=== PATIENT | female | born 1960 | race Caucasian/White ===

== ENCOUNTER 2016-08-27 19:42 | Emergency (ER) | payer MEDICARE ==
[2016-08-27] MEDS ORDERED: Sodium Chloride 0.9% 1000 ML 1,000 ML ONE (20:13)
[2016-08-27] MEDS: Sodium Chloride 0.9% 1000 ML 1,000 ML IV SCH ×2 (20:14→21:01)
--- NOTE | 2016-08-27 20:15 | ERPHSYRPT ---
- History of Present Illness Time Seen by Provider: 08/27/16 20:11 Source: patient, family Exam Limitations: no limitations Patient Subjective Stated Complaint: Daughter sts they were out couponing, came home, sts heart monitor was going off, sts she pushed the button and then had a blank stare with facial drooping both sides. Then told her daughter "I think I need to go to the emergency room". Daughter sts that pt then would only grunt to answer. Pt with pain left shoulder and back. Rates pain 4/10. Triage Nursing Assessment: Pt alert, oriented, answers all questions appropriately however appears lethargic. Skin p/w/d, resps non-labored. Pt with life vest on. SPO2 98% room air. Physician History: aughter sts they were out couponing, came home, sts heart monitor was going off , sts she pushed the button and then had a blank stare with facial drooping both sides. Then told her daughter "I think I need to go to the emergency room ". Daughter sts that pt then would only grunt to answer. Pt with pain left shoulder and back. Patient has Hx of viral cardiomyopathy. Her recent EF is 40 % improved from 20 % 6 months ago Timing/Duration: today Activities at Onset: activity Nitro Today/Relief: no nitro taken today Aspirin Treatment Today: 81 mg x 1 Associated Symptoms: shortness of breath, diaphoresis, syncope, weakness Prior Chest Pain/Cardiac Workup: cardiac cath, echocardiography, recently seen/ treated (by Dr Smith (cardiology)) Allergies/Adverse Reactions: Penicillins Allergy (Unknown, Verified 08/27/16 20:03) not taken as a child, does not remember Home Medications: Gabapentin 300 mg [Neurontin 300 mg] 300 mg PO HS 11/09/11 [History] Metoprolol Succinate 100 mg [Toprol Xl 100 MG] 100 mg PO HS 09/20/13 [ History] Venlafaxine HCl [Effexor Xr] 150 mg PO DAILY 09/20/13 [History] Aspirin [Aspirin EC] 81 mg PO DAILY 08/27/16 [History] Carvedilol 3.125 mg [Coreg 3.125 MG] 3.125 mg PO DAILY 08/27/16 [History] Lisinopril 10 mg PO DAILY 08/27/16 [History] Hx Tetanus, Diphtheria Vaccination/Date Given: Yes (6 YRS. AGO) Hx Influenza Vaccination/Date Given: No Hx Pneumococcal Vaccination/Date Given: No - Review of Systems Constitutional: Weakness, No Fever, No Chills Eyes: No Symptoms Ears, Nose, & Throat: No Symptoms Respiratory: No Cough, No Dyspnea Cardiac: No Chest Pain, No Edema, No Syncope Abdominal/Gastrointestinal: No Abdominal Pain, No Nausea, No Vomiting, No Diarrhea Genitourinary Symptoms: No Dysuria Musculoskeletal: No Back Pain, No Neck Pain Skin: No Rash Neurological: Dizziness, No Focal Weakness, No Sensory Changes Psychological: No Symptoms Endocrine: No Symptoms All Other Systems: Reviewed and Negative - Past Medical History Pertinent Past Medical History: Yes Neurological History: Migraines ENT History: No Pertinent History Cardiac History: No Pertinent History Respiratory History: No Pertinent History Endocrine Medical History: No Pertinent History Musculoskeletal History: No Pertinent History, Other GI Medical History: GERD History: No Pertinent History Psycho-Social History: Depression Female Reproductive Disorders: Endometriosis Other Medical History: h1n1 with pneumonia and infection injured her heart. Last ECHO was 25% function, had heart cath last 08/18/16 - Past Surgical History Past Surgical History: Yes Neuro Surgical History: No Pertinent History Cardiac: No Pertinent History, Cardiac Catheterization, Other Respiratory: No Pertinent History Gastrointestinal: Appendectomy, Cholecystectomy Genitourinary: No Pertinent History Musculoskeletal: No Pertinent History Female Surgical History: Hysterectomy Other Surgical History: "vericose veins burned out" both legs, has life vest on - Social History Smoking Status: Never smoker Exposure to second hand smoke: No Drug Use: none Patient Lives Alone: No - Nursing Vital Signs Temperature: 97.9 F Temperature Source: Oral Pulse Rate: 82 Respiratory Rate: 16 - Physical Exam General Appearance: no apparent distress, alert Eye Exam: PERRL/EOMI, eyes nml inspection Ears, Nose, Throat Exam: normal ENT inspection, moist mucous membranes Neck Exam: normal inspection, non-tender, supple Respiratory Exam: normal breath sounds, lungs clear, No respiratory distress Cardiovascular Exam: regular rate/rhythm, normal heart sounds, No edema Gastrointestinal/Abdomen Exam: soft, No tenderness, No mass Back Exam: normal inspection, No CVA tenderness, No vertebral tenderness Extremity Exam: normal inspection, normal range of motion Neurologic Exam: alert, oriented x 3, cooperative, normal mood/affect, nml cerebellar function, sensation nml, No motor deficits Skin Exam: normal color, warm, dry Lymphatic Exam: No adenopathy SpO2: 98 Oxygen Delivery: Room Air - Course Nursing assessment & vital signs reviewed: Yes EKG Interpreted by Me: Sinus Rhythm, Non-specific ST Changes - Radiology Exams Chest X-ray Interpretation: Reviewed by me - CT Exams Chest CT Interpretation: Tele-radiologist Report (no PE) Ordered Tests: Active Orders 24 hr Category Date Time Status CHEST 2 VIEWS (PA AND LAT) Stat Exams 08/27/16 20:09 Completed CHEST WITH CONTRAST [CT] Stat Exams 08/27/16 20:44 Taken CBC W DIFF Stat Lab 08/27/16 20:00 Completed CMP Stat Lab 08/27/16 20:00 Completed D-DIMER QUANTITATION Stat Lab 08/27/16 20:00 Completed TROPONIN Stat Lab 08/27/16 20:00 Completed UA Stat Lab 08/27/16 20:09 Ordered Medication Summary Generic Name Dose Route Start Last Admin Trade Name Freq PRN Reason Stop Dose Admin Sodium Chloride 1,000 mls @ 100 mls/hr 08/27/16 20:15 08/27/16 21:01 Sodium Chloride 0.9% 1000 Ml IV 09/26/16 20:14 100 mls/hr .Q10H SANGITA Administration Discontinued Medications Generic Name Dose Route Start Last Admin Trade Name Freq PRN Reason Stop Dose Admin Sodium Chloride Confirm 08/27/16 20:13 Sodium Chloride 0.9% 1000 Ml Administered 08/27/16 20:14 Dose 1,000 mls @ ud .ROUTE .STK-MED ONE Sodium Chloride Confirm 08/27/16 20:56 Sodium Chloride 0.9% 1000 Ml Administered 08/27/16 20:57 Dose 1,000 mls @ ud .ROUTE .STK-MED ONE Potassium Bicarbonate 50 meq 08/27/16 20:43 08/27/16 21:01 K-Lyte 25 Meq PO 08/27/16 20:44 50 meq STAT ONE Administration Potassium Bicarbonate Confirm 08/27/16 20:56 K-Lyte 25 Meq Administered 08/27/16 20:57 Dose 50 meq .ROUTE .STK-MED ONE Lab/Rad Data: Laboratory Result Diagrams 08/27/16 20:00 08/27/16 20:00 Laboratory Results 08/27/16 08/27/16 08/27/16 Range/Units 20:00 20:00 20:00 WBC 7.5 (4.0-10.5) K/mm3 RBC 4.48 (4.1-5.4) M/mm3 Hgb 13.1 (12.0-16.0) gm/dl Hct 41.6 (35-47) % MCV 92.9 (78-100) fl MCH 29.2 (26-32) pg MCHC 31.5 L (32-36) g/dl RDW 14.9 H (11.5-14.0) % Plt Count 215 (150-450) K/mm3 MPV 10.8 H (6-9.5) fl Gran % 49.6 (36.0-66.0) % Lymphocytes % 27.7 (24.0-44.0) % Monocytes % 8.2 (0.0-12.0) % Eosinophils % 14.0 H (0.00-5.0) % Basophils % 0.5 (0.0-0.4) % Basophils # 0.04 (0-0.4) D-Dimer 0.774 H* (0.00-0.49) mg/L Sodium 147 H (136-145) mEq/L Potassium 3.4 L (3.5-5.1) mEq/L Chloride 108 H (98-107) mEq/L Carbon Dioxide 28.1 (21-32) mEq/L Anion Gap 14.5 (5-15) MEQ/L BUN 10 (9-20) mg/dL Creatinine 1.09 (0.55-1.30) mg/dl Estimated GFR 56 ML/MIN Glucose 111 H (70-110) MG/DL Calcium 8.9 (8.5-10.1) mg/dL Total Bilirubin 0.7 (0.2-1.0) mg/dL AST 55 H (15-37) U/L ALT 60 (12-78) U/L Alkaline Phosphatase 170 H (46-116) U/L Troponin I < 0.017 (0.000-0.056) ng/ml Serum Total Protein 8.1 (6.4-8.2) gm/dL Albumin 3.9 (3.4-5.0) g/dL - Progress Progress: improved Air Movement: good Counseled pt/family regarding: lab results, diagnosis, need for follow-up, rad results - Departure Time of Disposition: 22:19 Departure Disposition: Home Clinical Impression: Syncope Qualifiers: Syncope type: vasovagal syncope Qualified Code(s): R55 - Syncope and collapse Condition: Stable Critical Care Time: Yes Critical Care Time(excluding separately billable procedures): 30-74 minutes Referrals: JAMES ODONNELL [Primary Care Provider] - Additional Instructions: continue all medicine as prescribed, follow up with Dr Smith on monday AM, if symptoms recur come back to ER
[2016-08-27 20:19] LABS: BASOPHIL % 0.5 % (0.0-0.4); Granulocytes % 49.6 % (36.0-66.0); Lymphocytes % 27.7 % (24.0-44.0); Mean Cell Volume 92.9 fl (78-100); Mean Corpuscular Hemoglobin 29.2 pg (26-32); Mean Platelet Volume 10.8 fl (6-9.5); Monocytes % 8.2 % (0.0-12.0); Platelet Count 215 K/mm3 (150-450); Red Blood Count 4.48 M/mm3 (4.1-5.4); Red Cell Distribution Width 14.9 % (11.5-14.0); White Blood Count 7.5 K/mm3 (4.0-10.5)
[2016-08-27 20:32] LABS: ALBUMIN 3.9 g/dL (3.4-5.0); ALKALINE PHOSPHATASE 170 U/L (46-116); ANION GAP 14.5 MEQ/L (5-15); BILIRUBIN,TOTAL 0.7 mg/dL (0.2-1.0); BLOOD UREA NITROGEN 10 mg/dL (9-20); CHLORIDE 108 mEq/L (98-107); Carbon Dioxide 28.1 mEq/L (21-32); Glucose 111 MG/DL (70-110); Potassium 3.4 mEq/L (3.5-5.1); SGOT/AST 55 U/L (15-37); SGPT/ALT 60 U/L (12-78); SODIUM 147 mEq/L (136-145); TROPONIN < 0.017 ng/ml (0.000-0.056); Total Protein 8.1 gm/dL (6.4-8.2)
[2016-08-27] MEDS ORDERED: K-LYTE 25 MEQ PO ONE (20:43)
[2016-08-27] MEDS ORDERED: K-LYTE 25 MEQ ONE (20:56)
[2016-08-27] MEDS ORDERED: Sodium Chloride 0.9% 1000 ML 0 ML ONE (20:56)
--- NOTE | 2016-08-27 21:13 | XRAY ---
Indication: Heart life vest alarm. Dizziness. Comparison: August 09, 2016. AP/lateral chest now demonstrates multiple overlying monitoring patches, wires, and electronic devices with stable subtle lingular infiltrate/atelectasis. Remaining heart and right lung unremarkable.
[2016-08-27 23:00] VITALS: BP 137/70; PULSE 70; O2SAT 99
--- NOTE | 2016-08-28 10:26 | XRAY ---
Indication: Palpitations and syncope. Elevated d-dimer. Multiple contiguous axial images obtained through the chest using 80 cc of Isovue-370 contrast and PE protocol. Comparison: CT chest without August 30, 2012. There is good opacification of the pulmonary arteries including the lobar and segmental branches. No filling defect or pulmonary embolus. Heart is not enlarged. Aorta is normal in course and caliber. No pathologic mediastinal/hilar lymphadenopathy. Examination of the lung parenchyma demonstrates bilateral atelectasis/scarring greatest near the lung bases. New indeterminate 14 mm noncalcified nodule in the right middle lobe. No infiltrate, consolidation, or effusion. Bony thorax intact with minimal degenerative changes throughout the spine. Limited upper abdomen demonstrates fatty liver and stable subcentimeter hepatic cyst adjacent to the gallbladder fossa. Impression: 1. Negative for pulmonary embolus. No acute cardiopulmonary abnormalities. 2. Right middle lobe indeterminate noncalcified nodule. Finding may be granulomatous in this demographic. Recommend follow-up per Fleischner guidelines. 3. Incidental fatty liver and tiny hepatic cyst. CTDI 23.68
== END 2016-08-27 23:00 | disposition home or self-care (01) ==
LOC: ED 19:42
DX: R55 Syncope and collapse (principal); R06.02 Shortness of breath; R61 Generalized hyperhidrosis; R53.1 Weakness; Z79.899 Other long term (current) drug therapy
CPT/HCPCS: 36000; 36415; 71020; 71260; 80053; 84484; 85025; 85379; 93005; 96360; 96361; 99284; A9270-GY

== ENCOUNTER 2017-04-18 05:55 | Day surgery (SDC) | payer MEDICARE ==
[2017-04-18] MEDS ORDERED: DIPRIVAN 200 MG/20 ML IV ONE (05:56)
[2017-04-18] MEDS ORDERED: Ketamine HCl 50 MG/ML IV ONE (05:56)
[2017-04-18] MEDS ORDERED: Lactated Ringers 1,000 ML IV SCH (06:30)
[2017-04-18 08:15] VITALS: O2SAT 96
[2017-04-18 08:42] VITALS: BP 121/71; PULSE 73
--- NOTE | 2017-05-01 14:38 | OP ---
SURGERY DATE/TIME: 05/01/201724 PREOPERATIVE DIAGNOSIS: History of colon polyps. POSTOPERATIVE DIAGNOSIS: Small polyp. PROCEDURE: Colonoscopy with biopsy. SURGEON: Dr. Lockwood. ANESTHESIA: MAC. Medications given by anesthesia department. HISTORY: The patient is a 56 year-old white female presenting now for investigation. She previously had colonoscopy in which colon polyps were removed. The patient was felt the need to have reinvestigation at this time. She was reappraised of the risks of the procedure including the risk of perforation, phlebitis, untoward reaction to medication, bleeding and missed lesions. The patient verbalized her understanding and desired to have the procedure performed. DESCRIPTION OF PROCEDURE: The patient was given the medications by the anesthesia department. She had continuous pulse oximetry, ECG monitoring, intermittent blood pressure monitoring and tidal CO2 monitoring during the examination. She was placed in the left lateral decubitus position. A digital rectal examination was performed and revealed normal sphincter tone and no masses. The flexible Olympus pediatric colonoscope was used to intubate the rectum. A view of the colon was developed sequentially to the cecum. Upon insertion and withdrawal, there was noted a small polyp. It was biopsied using cold biopsy technique. Upon insertion and withdrawal including a retroflex view in the rectum, no other mucosal lesions being encountered, the scope was removed from the patient who tolerated the procedure well and was sent back to OP recovery in good condition. The prep was noted to be fair.
== END 2017-04-18 09:00 | disposition home or self-care (01) ==
LOC: SDC 05:55
PROVIDERS: ATTEND Family Medicine
PROC: 0DBL8ZX Excision of Transverse Colon, Via Natural or Artificial Opening Endoscopic, Diagnostic (ICD-10-PCS; principal; 2017-04-18)
DX: K63.5 Polyp of colon (principal); Z86.010 Personal history of colon polyps
CPT/HCPCS: 00810; 88305; 93005; J2704

== ENCOUNTER 2020-04-14 14:20 | Observation (INO) | payer MEDICARE ==
--- NOTE | 2020-04-14 14:48 | ERPHSYRPT ---
- History of Present Illness Time Seen by Provider: 04/14/20 14:40 Historian: patient Exam Limitations: no limitations Patient Subjective Stated Complaint: . Triage Nursing Assessment: . Physician History: Patient is a 59-year-old female presents to our ED for evaluation of chest pain. Pain started approximately 6 hours ago. Pain described as an ache that is substernal. Pain rated 7 out of 10. Pain tends to radiate to the left aspect of her body. It is associated with shortness of breath. No nausea vomiting or diarrhea. Patient advised that she has a history of cardiomyopathy. Patient was infected with H1 N1. Patient states her ejection fraction decreased down to 20%. Patient states her last checkup revealed an ejection fraction of 50%. Patient also request that we take a look at her finger which he lacerated just prior to arrival. Patient denies nausea vomiting diaphoresis. No dizziness. No syncope. She voices no other complaints or concerns at this time. Timing/Duration: today Activities at Onset: other (Walking.) Quality: aching Location: substernal, other (Pain radiates to the left side of her body.) Severity of Pain-Max: moderate Severity of Pain-Current: mild Modifying Factors: Improves With: nothing Associated Symptoms: shortness of breath, No nausea, No vomiting, No palpitation s, No fever, No weakness, No syncope, No headache, No dizziness Nitro Today/Relief: no nitro taken today Aspirin Treatment Today: no aspirin today Allergies/Adverse Reactions: Penicillins Allergy (Unknown, Verified 04/14/20 14:38) not taken as a child, does not remember Home Medications: Gabapentin 300 mg [Neurontin 300 mg] 300 mg PO TID 11/09/11 [History] Venlafaxine HCl [Effexor Xr] 225 mg PO QHS 09/20/13 [History] Sacubitril/Valsartan [Entresto 24 mg-26 mg Tablet] 1 tab PO BID 02/09/17 [History] Topiramate 100 mg [Topamax 100 MG] 100 mg PO QHS 02/09/17 [History] Carvedilol [Coreg] 3.125 mg PO BID 11/30/18 [History] Hx Tetanus, Diphtheria Vaccination/Date Given: Yes Hx Influenza Vaccination/Date Given: Yes Hx Pneumococcal Vaccination/Date Given: Yes Immunizations Up to Date: Yes Travel Risk - International Travel Have you traveled outside of the country in past 3 weeks: No - Coronavirus Screening Are you exhibiting any of the following symptoms?: No - Review of Systems Constitutional: No Symptoms, No Fever, No Chills Eyes: No Symptoms Ears, Nose, & Throat: No Symptoms Respiratory: No Symptoms, No Cough, No Dyspnea Cardiac: No Symptoms, No Chest Pain, No Edema, No Syncope Abdominal/Gastrointestinal: No Symptoms, No Abdominal Pain, No Nausea, No Vomiting, No Diarrhea Genitourinary Symptoms: No Symptoms, No Dysuria Musculoskeletal: No Symptoms, No Back Pain, No Neck Pain Skin: No Symptoms, No Rash Neurological: No Symptoms, No Dizziness, No Focal Weakness, No Sensory Changes Psychological: No Symptoms Endocrine: No Symptoms Hematologic/Lymphatic: No Symptoms Immunological/Allergic: No Symptoms All Other Systems: Reviewed and Negative - Past Medical History Pertinent Past Medical History: Yes Neurological History: Migraines ENT History: No Pertinent History Cardiac History: Arrhythmia, Other Respiratory History: No Pertinent History Endocrine Medical History: No Pertinent History Musculoskeletal History: No Pertinent History, Other GI Medical History: GERD, Gallbladder Disease, Polyps History: No Pertinent History Psycho-Social History: Depression Female Reproductive Disorders: Endometriosis Other Medical History: h1n1 with pneumonia and infection injured her heart. Last ECHO shows reduced heart function 50% Multiple Sclerosis - Past Surgical History Past Surgical History: Yes Neuro Surgical History: No Pertinent History Cardiac: No Pertinent History, Cardiac Catheterization, Other Respiratory: No Pertinent History Gastrointestinal: Appendectomy, Cholecystectomy, Other Genitourinary: No Pertinent History Musculoskeletal: No Pertinent History Female Surgical History: Hysterectomy Other Surgical History: "vericose veins burned out" both legs, exploratory abdominal surgery,colonoscopy polyps removed - Social History Smoking Status: Never smoker Exposure to second hand smoke: No Drug Use: none Patient Lives Alone: No - Female History Hx Now: No - Nursing Vital Signs Nursing Vital Signs: Initial Vital Signs Pulse Rate 88 04/14/20 14:30 Respiratory Rate 16 04/14/20 14:30 Blood Pressure 138/91 04/14/20 14:30 O2 Sat by Pulse Oximetry 100 04/14/20 14:30 Pain Scale Pain Intensity 5 - Physical Exam General Appearance: no apparent distress, alert Eye Exam: PERRL/EOMI, eyes nml inspection Ears, Nose, Throat Exam: normal ENT inspection, moist mucous membranes Neck Exam: normal inspection, non-tender, supple, full range of motion Respiratory Exam: normal breath sounds, lungs clear, No respiratory distress Cardiovascular Exam: regular rate/rhythm, normal heart sounds Gastrointestinal/Abdomen Exam: soft, No tenderness, No mass Back Exam: normal inspection, No CVA tenderness, No vertebral tenderness Extremity Exam: normal inspection, normal range of motion Neurologic Exam: alert, oriented x 3, cooperative, normal mood/affect, sensation nml, No motor deficits Skin Exam: normal color, warm, dry SpO2 Interpretation: normal SpO2: 100 O2 Delivery: Room Air - Course Nursing assessment & vital signs reviewed: Yes EKG Interpreted by Me: RATE (93), Sinus Rhythm, Left [place] Deviation, NORMAL INTERVALS - Radiology Exams Chest X-ray Interpretation: Teleradiologist Report (Portable chest less inflated again without focal infiltrate no consolidation or effusion. Heart is not enlarged. Bony thorax intact. Continued nonacute chest.) Ordered Tests: Active Orders 24 hr Category Date Time Status Bedrest ROUTINE Activity 04/14/20 17:38 Active Bedrest with BRP/BSC ROUTINE Activity 04/14/20 17:38 Active [place] Sewer STAT Care 04/14/20 14:44 Completed Code Status Order ROUTINE Care 04/14/20 17:38 Active EKG-ER Only STAT Care 04/14/20 14:43 Completed IV Care Q6H Care 04/14/20 17:38 Active IV Insertion STAT Care 04/14/20 14:43 Completed Implement Chest Pain Pathway ROUTINE Care 04/14/20 17:[address] in Observation ROUTINE Care 04/14/20 17:38 Active Pulse Oximetry (ED) STAT Care 04/14/20 14:43 Completed Rajan Dubon ROUTINE Care 04/14/20 17:38 Active Telemetry q6h Care 04/14/20 17:38 Active Weight,Daily 0600 Care 04/14/20 17:38 Active Heart-Healthy Diet Diet 04/14/20 Breakfast Active CHEST 1 VIEW (PORTABLE) Stat Exams 04/14/20 14:44 Completed CBC W DIFF Stat Lab 04/14/20 14:50 Completed CMP Stat Lab 04/14/20 02:45 Completed D-DIMER QUANTITATIVE Stat Lab 04/14/20 02:45 Completed LIPID PROFILE AM.LAB Lab 04/15/20 04:00 Ordered TROPONIN Q3H Lab 04/14/20 02:45 Completed TROPONIN Q3H Lab 04/14/20 17:38 Completed TROPONIN Q3H Lab 04/14/20 21:00 Completed TROPONIN Q3H Lab 04/14/20 23:45 Ordered TROPONIN Q3H Lab 04/15/20 02:45 Ordered Pulse Oximetry Q4H RT 04/14/20 17:38 Completed Transfer Order Routine Transfer 04/14/20 Completed Medication Summary Generic Name Dose Route Start Last Admin Trade Name Freq PRN Reason Stop Dose Admin Acetaminophen 650 mg 04/14/20 17:38 04/14/20 18:26 Tylenol 325 Mg PO 05/14/20 17:37 650 mg Q4H PRN PRN Administration PAIN AND/OR FEVER Al Hydrox/Mg Hydrox/Simethicone 30 ml 04/14/20 17:38 Maalox Es 30 Ml Unit Dose PO 05/14/20 17:37 Q4H PRN PRN INDIGESTION Carvedilol 3.125 mg 04/14/20 22:00 04/14/20 21:31 Coreg 3.125 Mg PO 04/14/20 22:01 3.125 mg ONCE ONE Administration Gabapentin 300 mg 04/14/20 22:00 04/14/20 21:30 Neurontin 300 Mg PO 04/14/20 22:01 300 mg QHS ONE Administration Magnesium Hydroxide 30 - 60 ml 04/14/20 17:38 Milk Of Magnesia 30 Ml PO 05/14/20 17:37 QDP PRN CONSTIPATION Non-Formulary Medication 1 each 04/14/20 22:00 04/14/20 21:32 Non-Formulary Item PO 04/14/20 22:01 1 each ONCE ONE Administration Ondansetron HCl 4 mg 04/14/20 17:38 Zofran 4 Mg/2 Ml Vial IV 05/14/20 17:37 Q4H PRN PRN NAUSEA/VOMITING Senna/Docusate Sodium 2 udtab 04/14/20 17:38 Senokot-S Tablet PO 05/14/20 17:37 BID PRN PRN CONSTIPATION Topiramate 100 mg 04/14/20 22:00 04/14/20 21:31 Topiramate PO 04/14/20 22:01 100 mg QHS ONE Administration Venlafaxine HCl 225 mg 04/14/20 22:00 04/14/20 21:30 Effexor Xr 75 Mg PO 04/14/20 22:01 225 mg QHS ONE Administration Discontinued Medications Generic Name Dose Route Start Last Admin Trade Name Rameshq PRN Reason Stop Dose Admin Aspirin 324 mg 04/14/20 15:11 04/14/20 15:18 Baby Aspirin 81 Mg Chew PO 04/14/20 15:12 324 mg STAT ONE Administration Aspirin Confirm 04/14/20 15:16 Baby Aspirin 81 Mg Chew Administered 04/14/20 15:17 Dose 324 mg .ROUTE .STK-MED ONE Nitroglycerin 1 gm 04/14/20 15:11 04/14/20 15:17 Nitro-Bid 2% Ud Packets TOP 04/14/20 15:12 1 gm STAT ONE Administration Nitroglycerin Confirm 04/14/20 15:16 Nitro-Bid 2% Ud Packets Administered 04/14/20 15:17 Dose 1 gm .ROUTE .STK-MED ONE Lab/Rad Data: Laboratory Result Diagrams 04/14/20 14:50 04/14/20 02:45 Laboratory Results 04/14/20 04/14/20 04/14/20 Range/Units 14:50 02:45 02:45 WBC 7.5 (4.0-10.5) K/mm3 RBC 4.33 (4.1-5.4) M/mm3 Hgb 12.9 (12.0-16.0) gm/dl Hct 41.4 (35-47) % MCV 95.6 (78-100) fl MCH 29.8 (26-32) pg MCHC 31.2 L (32-36) g/dl RDW 14.9 H (11.5-14.0) % Plt Count 220 (150-450) K/mm3 MPV 10.8 (7.5-11.0) fl Gran % 56.9 (36.0-66.0) % Eos # (Auto) 0.45 (0-0.5) Absolute Lymphs (auto) 2.21 (1.0-4.6) Absolute Monos (auto) 0.54 (0.0-1.3) Lymphocytes % 29.6 (24.0-44.0) % Monocytes % 7.2 (0.0-12.0) % Eosinophils % 6.0 H (0.00-5.0) % Basophils % 0.3 (0.0-0.4) % Absolute Granulocytes 4.25 (1.4-6.9) Basophils # 0.02 (0-0.4) D-Dimer 313 (215-500) ng/mL Sodium (137-145) mmol/L Potassium (3.5-5.1) mmol/L Chloride (98-107) mmol/L Carbon Dioxide (22-30) mmol/L Anion Gap (5-15) MEQ/L BUN (7-17) mg/dL Creatinine (0.52-1.04) mg/dL Estimated GFR ML/MIN Glucose (74-106) mg/dL Calcium (8.4-10.2) mg/dL Total Bilirubin (0.2-1.3) mg/dL AST (14-36) U/L ALT (0-35) U/L Alkaline Phosphatase (38-126) U/L Troponin I < 0.012 (0.000-0.034) ng/mL Serum Total Protein (6.3-8.2) g/dL Albumin (3.5-5.0) g/dL 04/14/20 Range/Units 02:45 WBC (4.0-10.5) K/mm3 RBC (4.1-5.4) M/mm3 Hgb (12.0-16.0) gm/dl Hct (35-47) % MCV (78-100) fl MCH (26-32) pg MCHC (32-36) g/dl RDW (11.5-14.0) % Plt Count (150-450) K/mm3 MPV (7.5-11.0) fl Gran % (36.0-66.0) % Eos # (Auto) (0-0.5) Absolute Lymphs (auto) (1.0-4.6) Absolute Monos (auto) (0.0-1.3) Lymphocytes % (24.0-44.0) % Monocytes % (0.0-12.0) % Eosinophils % (0.00-5.0) % Basophils % (0.0-0.4) % Absolute Granulocytes (1.4-6.9) Basophils # (0-0.4) D-Dimer (215-500) ng/mL Sodium 139 (137-145) mmol/L Potassium 4.1 (3.5-5.1) mmol/L Chloride 106 (98-107) mmol/L Carbon Dioxide 25 (22-30) mmol/L Anion Gap 12.7 (5-15) MEQ/L BUN 18 H (7-17) mg/dL Creatinine 0.95 (0.52-1.04) mg/dL Estimated GFR > 60.0 ML/MIN Glucose 103 (74-106) mg/dL Calcium 9.8 (8.4-10.2) mg/dL Total Bilirubin 0.90 (0.2-1.3) mg/dL AST 24 (14-36) U/L ALT 16 (0-35) U/L Alkaline Phosphatase 100 (38-126) U/L Troponin I (0.000-0.034) ng/mL Serum Total Protein 8.4 H (6.3-8.2) g/dL Albumin 4.6 (3.5-5.0) g/dL - Progress Progress: improved Air Movement: good Progress Note: 04/14/20 17:09 Patient reassessed. Chest pain improved after administration of nitro and aspirin. Has a significant family history of myocardial infarction, light of patient's age risk factors and symptoms we will admit for cardiac rule out. Case discussed with Dr. Correa who accepts admission to observation. Plan of care discussed with patient. She agrees admission to [facility] for further evaluation and treatment. 04/14/20 22:35 Blood Culture(s) Obtained: No Antibiotics given: No Discussed with : Joshua Will see patient in: hospital (observation) Counseled pt/family regarding: lab results, diagnosis, rad results - Departure Departure Disposition: Observation Clinical Impression: ACS (acute coronary syndrome) Condition: Good Critical Care Time: No
[2020-04-14 15:04] LABS: Absolute Neutrophil Ct (ANC) 4.25 (1.4-6.9); BASOPHIL % 0.3 % (0.0-0.4); Basophil (Absolute #) 0.02 (0-0.4); Eosinophil (Absolute #) 0.45 (0-0.5); Hematocrit 41.4 % (35-47); Hemoglobin 12.9 gm/dl (12.0-16.0); Lymphocyte (Absolute #) 2.21 (1.0-4.6); Lymphocytes % 29.6 % (24.0-44.0); Mean Cell Volume 95.6 fl (78-100); Mean Corpuscular Hemoglobin 29.8 pg (26-32); Mean Corpuscular Hgb Concent. 31.2 g/dl (32-36); Mean Platelet Volume 10.8 fl (7.5-11.0); Monocyte (Absolute #) 0.54 (0.0-1.3); Monocytes % 7.2 % (0.0-12.0); Neutrophil % 56.9 % (36.0-66.0); Platelet Count 220 K/mm3 (150-450); Red Blood Count 4.33 M/mm3 (4.1-5.4); Red Cell Distribution Width 14.9 % (11.5-14.0); White Blood Count 7.5 K/mm3 (4.0-10.5)
[2020-04-14 15:11] LABS: ALBUMIN 4.6 g/dL (3.5-5.0); ALKALINE PHOSPHATASE 100 U/L (38-126); ANION GAP 12.7 MEQ/L (5-15); BLOOD UREA NITROGEN 18 mg/dL (7-17); CHLORIDE 106 mmol/L (98-107); Calcium 9.8 mg/dL (8.4-10.2); Carbon Dioxide 25 mmol/L (22-30); Creatinine 1 0.95 mg/dL (0.52-1.04); EST GLOMERULAR FILTRATION RATE > 60.0 ML/MIN; Glucose 103 mg/dL (74-106); Potassium 4.1 mmol/L (3.5-5.1); SGOT/AST 24 U/L (14-36); SGPT/ALT 16 U/L (0-35); SODIUM 139 mmol/L (137-145); Total Protein 8.4 g/dL (6.3-8.2)
[2020-04-14] MEDS ORDERED: BABY ASPIRIN 81 MG CHEW PO ONE (15:11)
[2020-04-14] MEDS ORDERED: NITRO-BID 2% UD PACKETS TOP ONE (15:11)
--- NOTE | 2020-04-14 15:11 | XRAY ---
Indication: Chest pain. Comparison: June 04, 2018. Portable chest less inflated again without focal infiltrate, consolidation, or large effusion. Heart is not enlarged. Bony thorax intact. Impression: Continued nonacute chest.
[2020-04-14] MEDS ORDERED: BABY ASPIRIN 81 MG CHEW ONE (15:16)
[2020-04-14] MEDS ORDERED: NITRO-BID 2% UD PACKETS ONE (15:16)
[2020-04-14] MEDS ORDERED: Zofran 4 MG/2 ML VIAL IV PRN (17:38)
[2020-04-14] MEDS ORDERED: MILK OF MAGNESIA 30 ML PO PRN (17:38)
[2020-04-14] MEDS ORDERED: Senokot-S Tablet PO PRN (17:38)
[2020-04-14] MEDS ORDERED: MAALOX ES 30 ML UNIT DOSE PO PRN (17:38)
[2020-04-14] MEDS: TYLENOL 325 MG PO PRN (18:26)
[2020-04-14] MEDS ORDERED: TOPIRAMATE PO ONE (22:00)
[2020-04-14] MEDS ORDERED: Effexor XR 75 MG PO ONE (22:00)
[2020-04-14] MEDS ORDERED: Coreg 3.125 MG PO ONE (22:00)
[2020-04-14] MEDS ORDERED: NEURONTIN 300 MG PO ONE (22:00)
[2020-04-14] MEDS ORDERED: NON-FORMULARY ITEM PO ONE (22:00)
[2020-04-15 03:43] LABS: Risk Ratio 5.9
[2020-04-15] MEDS: TYLENOL 325 MG PO PRN (08:35)
--- NOTE | 2020-04-15 09:30 | PCM.HP ---
History of Present Illness - Chief Complaint Chief Complaint: ACS History of Present Illness: is a 59 year old female pt of mine from [facility] who was admitted through ER for chest pain. Her pain is substernal, radiates to L shoulder/axilla, is squeezing, 4/10 currently but up to 8/10, with diaphoresis and palpitations. She has recently, over the past few weeks, become more fatigued and sob; gets dyspneic even when walking three rooms over in her house. Taking a shower "wipes me out." She is orthopneic, sleeping in a chair as she can't lay flat. Two weeks ago pt had diarrhea, was covid negative, but has felt bad since. Says she feels like she did in 2017. She has a hx of cardiomyopathy with EF of 20 % at in 2017; last echo August 2019 with EF 50%. - Review of Systems Constitutional: Fatigue, Weakness, No Weight Loss (8lb weight gain in the past 10d) Respiratory: Cough (nonproductive), Short Of Breath Cardiac: Edema (in abd, not LE), Palpitations Abdominal/Gastrointestinal: Abdominal Pain (epigastrum; taking prilosec OTC two daily), Diarrhea, Hematochezia (due for colonoscopy with Dr. Lockwood) Genitourinary Symptoms: Other (had botox in bladder with Dr. Cool 4 mo ago) Neurological: Other (lightheadedness) Psychological: Anxiety, Depression, Memory Loss (forgetful recently), No Suicidal Ideations Medications & Allergies Home Medications: Home Medication List Gabapentin 300 mg [Neurontin 300 mg] 300 mg PO TID 11/09/11 [History Confirmed 04/14/20] Venlafaxine HCl [Effexor Xr] 225 mg PO QHS 09/20/13 [History Confirmed 04/14/20] Sacubitril/Valsartan [Entresto 24 mg-26 mg Tablet] 1 tab PO BID 02/09/17 [History Confirmed 04/14/20] Topiramate 100 mg [Topamax 100 MG] 100 mg PO QHS 02/09/17 [History Confirmed 04/14/20] Carvedilol [Coreg] 3.125 mg PO BID 11/30/18 [History Confirmed 04/14/20] Allergies/Adverse Reactions: Allergies Allergy/AdvReac Type Severity Reaction Status Date / Time Penicillins Allergy Unknown Verified 04/14/20 14:38 - Past Medical History Past Medical History: Yes Neurological History: Migraines ENT History: No Pertinent History Cardiac History: Arrhythmia, Other Respiratory History: No Pertinent History Endocrine Medical History: No Pertinent History Musculoskelatal History: No Pertinent History, Other GI Medical History: GERD, Gallbladder Disease, Polyps History: No Pertinent History Pyscho-Social History: Depression Reproductive Disorders: Endometriosis Comment: h1n1 with pneumonia and infection injured her heart. Last ECHO shows reduced heart function 50% Multiple Sclerosis - Female History Are you now?: No - Past Surgical History Past Surgical History: Yes Neuro Surgical History: No Pertinent History Cardiac History: No Pertinent History, Cardiac Catheterization, Other Respiratory Surgery: No Pertinent History GI Surgical History: Appendectomy, Cholecystectomy, Other Genitourinary Surgical Hx: No Pertinent History Musculskeletal Surgical Hx: No Pertinent History Female Surgical History: Hysterectomy Other Surgical History: "vericose veins burned out" both legs, exploratory abdominal surgery,colonoscopy polyps removed - Social History Smoking Status: Never smoker Exposure to second hand smoke: No Alcohol: None Drug Use: none - Physical Exam Vital Signs: Vital Signs - 24 hr Temp Pulse Pulse Resp BP Pulse Ox 04/15/20 06:49 99.7 F 84 15 113/68 95 04/15/20 04:10 98.1 F 80 17 92/51 97 04/14/20 23:48 98.6 F 70 18 105/52 97 04/14/20 22:37 100 04/14/20 17:58 98.5 F 89 18 113/80 97 04/14/20 17:57 98.5 F 90 18 128/78 98 04/14/20 17:38 97 04/14/20 17:12 89 18 113/80 97 04/14/20 15:22 84 13 119/78 99 04/14/20 14:55 99 04/14/20 14:30 94 H 88 16 138/91 100 General Appearance: no apparent distress, alert, obese Neurologic Exam: oriented x 3, cooperative Eye Exam: eyes nml inspection Ears, Nose, Throat Exam: moist mucous membranes Neck Exam: normal inspection Respiratory Exam: normal breath sounds, lungs clear, No crackles/rales, No rhonchi, No wheezing Cardiovascular Exam: regular rate/rhythm, normal heart sounds, No murmur, No edema Gastrointestinal/Abdomen Exam: soft, normal bowel sounds, tenderness (epigastrum), No distention, No mass, No guarding, No rebound Back Exam: normal inspection, No rash Extremity Exam: normal inspection, No pedal edema, No swelling Skin Exam: normal color, warm, dry, No rash Results - Labs Lab/Micro Results: Lab Results-Last 24 Hours 04/14/20 04/14/20 04/14/20 Range/Units 02:45 02:45 02:45 WBC (4.0-10.5) K/mm3 RBC (4.1-5.4) M/mm3 Hgb (12.0-16.0) gm/dl Hct (35-47) % MCV (78-100) fl MCH (26-32) pg MCHC (32-36) g/dl RDW (11.5-14.0) % Plt Count (150-450) K/mm3 MPV (7.5-11.0) fl Gran % (36.0-66.0) % Eos # (Auto) (0-0.5) Absolute Lymphs (auto) (1.0-4.6) Absolute Monos (auto) (0.0-1.3) Lymphocytes % (24.0-44.0) % Monocytes % (0.0-12.0) % Eosinophils % (0.00-5.0) % Basophils % (0.0-0.4) % Absolute Granulocytes (1.4-6.9) Basophils # (0-0.4) D-Dimer 313 (215-500) ng/mL Sodium 139 (137-145) mmol/L Potassium 4.1 (3.5-5.1) mmol/L Chloride 106 (98-107) mmol/L Carbon Dioxide 25 (22-30) mmol/L Anion Gap 12.7 (5-15) MEQ/L BUN 18 H (7-17) mg/dL Creatinine 0.95 (0.52-1.04) mg/dL Estimated GFR > 60.0 ML/MIN Glucose 103 (74-106) mg/dL Calcium 9.8 (8.4-10.2) mg/dL Total Bilirubin 0.90 (0.2-1.3) mg/dL AST 24 (14-36) U/L ALT 16 (0-35) U/L Alkaline Phosphatase 100 (38-126) U/L Troponin I < 0.012 (0.000-0.034) ng/mL Serum Total Protein 8.4 H (6.3-8.2) g/dL Albumin 4.6 (3.5-5.0) g/dL Triglycerides (30-150) mg/dL Cholesterol (50-200) mg/dL LDL Cholesterol (30-100) mg/dL HDL Cholesterol (40-60) mg/dL Heart Disease Risk Ratio 04/14/20 04/14/20 04/14/20 Range/Units 14:50 17:38 21:00 WBC 7.5 (4.0-10.5) K/mm3 RBC 4.33 (4.1-5.4) M/mm3 Hgb 12.9 (12.0-16.0) gm/dl Hct 41.4 (35-47) % MCV 95.6 (78-100) fl MCH 29.8 (26-32) pg MCHC 31.2 L (32-36) g/dl RDW 14.9 H (11.5-14.0) % Plt Count 220 (150-450) K/mm3 MPV 10.8 (7.5-11.0) fl Gran % 56.9 (36.0-66.0) % Eos # (Auto) 0.45 (0-0.5) Absolute Lymphs (auto) 2.21 (1.0-4.6) Absolute Monos (auto) 0.54 (0.0-1.3) Lymphocytes % 29.6 (24.0-44.0) % Monocytes % 7.2 (0.0-12.0) % Eosinophils % 6.0 H (0.00-5.0) % Basophils % 0.3 (0.0-0.4) % Absolute Granulocytes 4.25 (1.4-6.9) Basophils # 0.02 (0-0.4) D-Dimer (215-500) ng/mL Sodium (137-145) mmol/L Potassium (3.5-5.1) mmol/L Chloride (98-107) mmol/L Carbon Dioxide (22-30) mmol/L Anion Gap (5-15) MEQ/L BUN (7-17) mg/dL Creatinine (0.52-1.04) mg/dL Estimated GFR ML/MIN Glucose (74-106) mg/dL Calcium (8.4-10.2) mg/dL Total Bilirubin (0.2-1.3) mg/dL AST (14-36) U/L ALT (0-35) U/L Alkaline Phosphatase (38-126) U/L Troponin I < 0.012 < 0.012 (0.000-0.034) ng/mL Serum Total Protein (6.3-8.2) g/dL Albumin (3.5-5.0) g/dL Triglycerides (30-150) mg/dL Cholesterol (50-200) mg/dL LDL Cholesterol (30-100) mg/dL HDL Cholesterol (40-60) mg/dL Heart Disease Risk Ratio 04/14/20 04/15/20 04/15/20 Range/Units 23:45 02:50 02:50 WBC (4.0-10.5) K/mm3 RBC (4.1-5.4) M/mm3 Hgb (12.0-16.0) gm/dl Hct (35-47) % MCV (78-100) fl MCH (26-32) pg MCHC (32-36) g/dl RDW (11.5-14.0) % Plt Count (150-450) K/mm3 MPV (7.5-11.0) fl Gran % (36.0-66.0) % Eos # (Auto) (0-0.5) Absolute Lymphs (auto) (1.0-4.6) Absolute Monos (auto) (0.0-1.3) Lymphocytes % (24.0-44.0) % Monocytes % (0.0-12.0) % Eosinophils % (0.00-5.0) % Basophils % (0.0-0.4) % Absolute Granulocytes (1.4-6.9) Basophils # (0-0.4) D-Dimer (215-500) ng/mL Sodium (137-145) mmol/L Potassium (3.5-5.1) mmol/L Chloride (98-107) mmol/L Carbon Dioxide (22-30) mmol/L Anion Gap (5-15) MEQ/L BUN (7-17) mg/dL Creatinine (0.52-1.04) mg/dL Estimated GFR ML/MIN Glucose (74-106) mg/dL Calcium (8.4-10.2) mg/dL Total Bilirubin (0.2-1.3) mg/dL AST (14-36) U/L ALT (0-35) U/L Alkaline Phosphatase (38-126) U/L Troponin I < 0.012 < 0.012 (0.000-0.034) ng/mL Serum Total Protein (6.3-8.2) g/dL Albumin (3.5-5.0) g/dL Triglycerides 154 H (30-150) mg/dL Cholesterol 222 H (50-200) mg/dL LDL Cholesterol 132 H (30-100) mg/dL HDL Cholesterol 37 L (40-60) mg/dL Heart Disease Risk Ratio 5.9 - Radiology Impressions Radiology Exams & Impressions: Radiology Procedures Category Date Time Status CHEST 1 VIEW (PORTABLE) Stat Exams 04/14/20 14:44 Completed ECHO W/2D AND DOPPLER [US] Routine Exams 04/15/20 Ordered - Other Procedures and Tests Respiratory Therapy 04/16/20 05:00 EKG ONCE 04/17/20 05:00 EKG ONCE 04/18/20 05:00 EKG DAILY Assessment/Plan (1) Chest pain Current Visit: Yes Status: Acute Qualifiers: Chest pain type: unspecified Qualified Code(s): R07.9 - Chest pain, unspecified Assessment & Plan: recurrent; with hx cardiomyopathy. Troponins have been neg x 5. Will add another troponin and do an EKG. Echo today. Cardiology consult with [facility] [facility] (Dr. Smith is her reimbursement coordinator). Code(s): R07.9 - CHEST PAIN, UNSPECIFIED (2) MADRIGAL (dyspnea on exertion) Current Visit: Yes Status: Acute Code(s): R06.00 - DYSPNEA, UNSPECIFIED (3) Hematochezia Current Visit: Yes Status: Acute Assessment & Plan: Will set up colonoscopy and EGD outpatient with Dr. Lockwood. Code(s): K92.1 - MELENA (4) Epigastric pain Current Visit: Yes Status: Acute Code(s): R10.13 - EPIGASTRIC PAIN (5) Mixed anxiety depressive disorder Current Visit: Yes Status: Acute Assessment & Plan: Will start pt on SSRI. (6) Fatigue Current Visit: Yes Status: Acute Qualifiers: Fatigue type: unspecified Qualified Code(s): R53.83 - Other fatigue Assessment & Plan: Added more labs Code(s): R53.83 - OTHER FATIGUE
[2020-04-15] MEDS ORDERED: Coreg 3.125 MG PO SCH (10:00)
[2020-04-15] MEDS ORDERED: PATIENT OWN MEDICATION PO SCH (10:00)
[2020-04-15] MEDS ORDERED: NON-FORMULARY ITEM (Sacubitril/Valsartan [Entresto 24 Mg-26 Mg Tablet] 1 TAB) PO SCH (10:00)
[2020-04-15] MEDS ORDERED: ENTRESTO 49 MG-51 MG TABLET PO SCH (10:00)
[2020-04-15] MEDS: NEURONTIN 300 MG PO SCH ×2 (10:18→14:17)
[2020-04-15 10:58] LABS: Folate (Folic Acid) 8.75 ng/mL (2.76 - >20); TSH, 3RD Generation 3.96 mIU/L (0.47-4.68)
[2020-04-15 11:32] VITALS: PULSE 75
[2020-04-15] MEDS ORDERED: Cyanocobalamin B-12 1000 MCG/ML SQ ONE ×2 (14:52→16:14)
[2020-04-15 16:06] VITALS: BP 102/66; O2SAT 93
--- NOTE | 2020-04-15 16:34 | PCM.DS ---
Discharge Summary Date of Admission: 04/14/20 17:32 Admitting Physician: JAMES PRADO Consults: Consults on Case 04/15/20 09:31 Consult Cardiology ROUTINE Primary Care Provider: JAMES PRADO Allergies Allergies Penicillins Allergy (Unknown, Verified 04/14/20 14:38) not taken as a child, does not remember Hospital Summary - Hospital Course Hospital Course: Pt is a 59 yo female pt of mine from [facility] with hypothyroidism, HTN, and cardiomyopathy dx in 2017 (with EF 20%) who was admitted from ER with chest pain. She has also been quite fatigued and SOB; symptoms started increasing several weeks ago and she stated she feels about like she did when her EF was low (EF improved to 50% on last echo). Her troponins are neg x 5. CXR neg. D-dimer was nl. Today she says her pain is worse when she's up moving around. Telecardiology consult was done, thank you. We will be adding an ESR and a CT chest /abd with contrast (to r/o aortic dissection/aneurism) and if that is normal will discharge her to home tonight. She is following up with cardiology tomorrow in office. - Vitals & Intake/Output Vital Signs: Vital Signs Temperature 98.1 F 04/15/20 16:00 Pulse Rate 75 04/15/20 16:00 Respiratory Rate 16 04/15/20 16:00 Blood Pressure 102/66 04/15/20 16:00 O2 Sat by Pulse Oximetry 93 L 04/15/20 16:00 Intake & Output: Intake & Output 04/13/20 04/14/20 04/15/20 04/16/20 11:59 11:59 11:59 11:59 Intake Total 940 360 Balance 940 360 Weight 87.5 kg - Lab Result Diagrams: 04/14/20 14:50 04/14/20 02:45 Lab Results-Last 24 Hrs: Lab Results-Last 24 Hours 04/14/20 04/14/20 04/14/20 Range/Units 17:38 21:00 23:45 Troponin I < 0.012 < 0.012 < 0.012 (0.000-0.034) ng/mL NT-Pro-B Natriuret Pep (0-900) pg/mL Triglycerides (30-150) mg/dL Cholesterol (50-200) mg/dL LDL Cholesterol (30-100) mg/dL HDL Cholesterol (40-60) mg/dL Heart Disease Risk Ratio Vitamin B12 (239-931) pg/mL 25-OH Vitamin D Total (30-100) ng/mL Folic Acid (2.76 - >20) ng/mL TSH 3rd Generation (0.47-4.68) mIU/L 04/15/20 04/15/20 04/15/20 Range/Units 02:50 02:50 05:00 Troponin I < 0.012 (0.000-0.034) ng/mL NT-Pro-B Natriuret Pep (0-900) pg/mL Triglycerides 154 H (30-150) mg/dL Cholesterol 222 H (50-200) mg/dL LDL Cholesterol 132 H (30-100) mg/dL HDL Cholesterol 37 L (40-60) mg/dL Heart Disease Risk Ratio 5.9 Vitamin B12 211 L (239-931) pg/mL 25-OH Vitamin D Total (30-100) ng/mL Folic Acid 8.75 (2.76 - >20) ng/mL TSH 3rd Generation 3.960 (0.47-4.68) mIU/L 04/15/20 04/15/20 04/15/20 Range/Units 05:00 08:50 09:31 Troponin I < 0.012 (0.000-0.034) ng/mL NT-Pro-B Natriuret Pep 31.9 (0-900) pg/mL Triglycerides (30-150) mg/dL Cholesterol (50-200) mg/dL LDL Cholesterol (30-100) mg/dL HDL Cholesterol (40-60) mg/dL Heart Disease Risk Ratio Vitamin B12 (239-931) pg/mL 25-OH Vitamin D Total < 12.8 L (30-100) ng/mL Folic Acid (2.76 - >20) ng/mL TSH 3rd Generation (0.47-4.68) mIU/L - Radiology Exams Ordered Rad Exams-Entire Visit: Radiology Procedures Category Date Time Status CHEST 1 VIEW (PORTABLE) Stat Exams 04/14/20 14:44 Completed ECHO W/2D AND DOPPLER [US] Routine Exams 04/15/20 11:22 Taken - Procedures and Test Procedures and Tests throughout Hospitalization: Therapy Orders & Screens 04/15/20 00:24 EKG ONCE Comment: Diagnosis: ACS 04/15/20 08:27 EKG STAT Comment: Diagnosis: ACS 04/16/20 05:00 EKG ONCE Comment: Diagnosis: ACS 04/17/20 05:00 EKG ONCE Comment: Diagnosis: ACS 04/18/20 05:00 EKG DAILY Comment: Diagnosis: ACS Discharge Exam General Appearance: no apparent distress, alert, other (exam done this morning) Neurologic Exam: oriented x 3, cooperative Eye Exam: eyes nml inspection Ears, Nose, Throat Exam: moist mucous membranes Neck Exam: normal inspection Respiratory Exam: normal breath sounds, lungs clear, No crackles/rales, No rhonchi, No wheezing Cardiovascular Exam: regular rate/rhythm, normal heart sounds, No murmur Gastrointestinal/Abdomen Exam: soft, normal bowel sounds, No guarding, No rebo und Back Exam: normal inspection, No rash Skin Exam: normal color, warm, dry, No rash Final Diagnosis/Problem List - Final Discharge Diagnosis/Problem (1) Chest pain Current Visit: Yes Status: Acute Assessment & Plan: likely inflammation. troponins neg x 6. Following up with cardiology tomorrow. Echo pending. CT pending. Code(s): R07.9 - CHEST PAIN, UNSPECIFIED (2) MADRIGAL (dyspnea on exertion) Current Visit: Yes Status: Acute Code(s): R06.00 - DYSPNEA, UNSPECIFIED (3) Hematochezia Current Visit: Yes Status: Acute Assessment & Plan: My office is scheduling outpatient EGD/colonoscopy for pt Code(s): K92.1 - MELENA (4) Epigastric pain Current Visit: Yes Status: Acute Code(s): R10.13 - EPIGASTRIC PAIN (5) Mixed anxiety depressive disorder Current Visit: Yes Status: Acute (6) Fatigue Current Visit: Yes Status: Acute Code(s): R53.83 - OTHER FATIGUE - Discharge Disposition: Home, Self-Care Condition: Stable Prescriptions: Continue Gabapentin 300 mg [Neurontin 300 mg] 300 mg PO TID Venlafaxine HCl [Effexor Xr] 225 mg PO QHS Sacubitril/Valsartan [Entresto 24 mg-26 mg Tablet] 1 tab PO BID Topiramate 100 mg [Topamax 100 MG] 100 mg PO QHS Carvedilol [Coreg] 3.125 mg PO BID Additional Instructions: IF YOU HAVE ANY QUESTIONS OR NEED ANY FURTHER ASSISTANCE WITH PRESCRIPTION COVERAGE, YOU CAN CALL THE HOSPITAL AT [phone] AND ASK FOR DOMINIQUE BALDWIN, THE INSURANCE NAVIGATOR. SHE MAY BE ABLE TO HELP YOU FIND PROGRAMS OR FURTHER ASSISTANCE WITH COVERAGE. Follow up with: RADHA BLAS [CONSULTING PHYSICIAN] - 04/16/20 10:15 am JAMES PRADO [Primary Care Provider] - 04/24/20 11:15 am
[2020-04-15] MEDS ORDERED: NON-FORMULARY ITEM (Venlafaxine Hcl [Effexor Xr] 225 MG) PO SCH (22:00)
[2020-04-15] MEDS ORDERED: Effexor XR 75 MG PO SCH (22:00)
[2020-04-15] MEDS ORDERED: TOPIRAMATE 100 MG PO SCH (22:00)
[2020-04-15] MEDS ORDERED: TOPIRAMATE PO SCH (22:00)
--- NOTE | 2020-04-16 07:55 | ECHO ---
DATE OF TEST: 04/15/2020 PROCEDURE: 2D echocardiogram. INDICATION: Chest pain, shortness of breath, hypertension. Left ventricular size appears to be grossly normal. There appears to be mild concentric left ventricular hypertrophy. Left ventricular systolic function appears to be grossly normal. Left ventricular ejection fraction is estimated to be 55%. There is E/A reversal consistent with left ventricular relaxation abnormalities. The right ventricle appears to be mildly dilated. Left atrium appears to be grossly normal in size measuring 3.46 cm. Right atrium appears to be grossly normal in size. Mitral valve appears to be grossly normal. There appears to be mild mitral regurgitation. Tricuspid valve appears to be grossly normal. There appears to be mild tricuspid regurgitation. Pulmonic valve is not well visualized but appears to open well. The pulmonic valve is not well visualized. Aortic root is not well visualized but appears to be normal measuring 3.21 cm. There does not appear to be any significant pericardial effusion noted. IMPRESSION: 1) MILD CONCENTRIC LEFT VENTRICULAR HYPERTROPHY. 2) NORMAL LEFT VENTRICULAR SYSTOLIC FUNCTION. 3) LEFT VENTRICULAR EJECTION FRACTION ESTIMATED TO BE 55%. 4) E/A REVERSAL CONSISTENT WITH LEFT VENTRICULAR RELXATION ABNORMALITIES. 5) MILD MITRAL REGURGITATION AND TRICUSPID REGURGITATION.
--- NOTE | 2020-04-16 08:44 | XRAY ---
Indication: Chest pain radiating left shoulder. Short of breath and fatigue. Conventional contrast enhanced CTA chest performed using 80 cc Isovue 370 contrast. Two-dimensional sagittal and coronal reformatted images obtained. Additional 3-dimensional reformatted images obtained using a separate workstation. Comparison: CT PE study August 27, 2016. Heart is not enlarged. Aorta remains normal in course and caliber without arteriosclerotic disease or aneurysm/dissection. No central pulmonary embolus. No pathologic mediastinal/hilar lymphadenopathy. Lungs inflated again with mild bibasilar subsegmental atelectasis/scarring. Previous right middle lobe noncalcified nodularity has cleared. No suspicious pulmonary mass, infiltrate, consolidation, or effusion. Bony thorax intact again with minimal degenerative changes throughout the spine. Limited upper abdomen again demonstrates fatty liver, small hepatic cyst, and cholecystectomy. Impression: Continued negative CTA chest with contrast exam. Again incidental atelectasis/scarring, fatty liver, and hepatic cyst. No new/acute findings.
== END 2020-04-15 18:30 | disposition home or self-care (01) ==
LOC: ED 14:20 → MED SURG 17:32
PROVIDERS: ADMIT Family Medicine; ATTEND Family Medicine
DX: R07.9 Chest pain, unspecified (principal); R42 Dizziness and giddiness; I10 Essential (primary) hypertension; E03.9 Hypothyroidism, unspecified; I42.9 Cardiomyopathy, unspecified; R53.83 Other fatigue; R06.00 Dyspnea, unspecified; K92.1 Melena; R10.13 Epigastric pain; F32.9 Major depressive disorder, single episode, unspecified
CPT/HCPCS: 36000; 36415; 71045; 71275; 80053; 80061; 82306; 82607; 82746; 83721; 83880; 84443; 84484; 85025; 85379; 85652; 93005; 93041; 93306; 94760; 99284; G0378; Q3014; J3420; A9270-GY

== ENCOUNTER 2020-05-04 06:12 | Day surgery (SDC) | payer MEDICARE ==
[2020-05-04] MEDS ORDERED: Lactated Ringers 1,000 ML IV SCH (06:30)
[2020-05-04] MEDS ORDERED: DIPRIVAN 200 MG/20 ML IV ONE (07:01)
[2020-05-04 08:38] VITALS: O2SAT 99
[2020-05-04 09:18] VITALS: BP 117/71; PULSE 82
--- NOTE | 2020-05-04 12:58 | OP ---
SURGERY DATE/TIME: 05/04/2020 0725 PREOPERATIVE DIAGNOSES: 1) Epigastric pain. 2) History of colon polyps. POSTOPERATIVE DIAGNOSES: 1) NSAID-type gastropathy. 2) Sigmoid diverticulosis. PROCEDURES: 1) Esophagogastroduodenoscopy with cold forceps biopsy. 2) Colonoscopy. SURGEON: Dr. Lockwood. ANESTHESIA: Medications were given by the anesthesia department. HISTORY: The patient is a 59 year old white female who reports she has been having problems with epigastric pain. She denies taking NSAID's but takes a large amount of venlafaxine. The patient was described the risks of the procedure including the risk of perforation, phlebitis, untoward reaction to medication, bleeding and missed lesions. The patient verbalized her understanding and desired to have the procedure performed. DESCRIPTION OF PROCEDURE: The patient was given the medications by the anesthesia department. She had continuous pulse oximetry, ECG monitoring, intermittent blood pressure monitoring and tidal CO2 monitoring during the examination. She was placed in the left lateral decubitus position. A bite block was placed and the flexible Olympus gastroscope was used to intubate the oropharynx. A view of the larynx was obtained and was normal. The scope was easily introduced in the esophagus which appeared to be normal throughout its length. The stomach was entered where normal gastric rugal folds were seen and distended nicely with insufflation of air. The gastric martin was suctioned dry and the stomach re-insufflated and we can see there throughout the stomach generalized erythema and areas consistent with NSAID-type gastropathy. The scope was passed along the greater curvature of the stomach to the antrum. The pylorus encountered and intubated. The duodenum inspected and found to be normal. The scope is withdrawn towards the stomach. Again, a retroflex view was obtained of the lesser curvature, fundus and cardia regions of the stomach and these appeared to be essentially normal. The scope was then redirected towards the gastric antrum and biopsies were obtained to rule out the presence of Helicobacter pylori-type organisms. The scope was then removed from the patient. Next, a digital rectal exam was performed revealed normal anal sphincter tone and no masses. The flexible Olympus pediatric colonoscope was used to intubate the rectum. A view of the colon was developed sequentially to the cecum. It was noted that the colon was quite tortuous and there was a fair amount of liquidy almost pasty stool noted in particularly the transverse colon and sigmoid colon. We were able to develop a view. We were able to see approximately 95% of the colon lumen. No mucosal lesions were encountered other than sigmoid diverticula. The scope was removed from the patient who tolerated the procedure well and sent back to OP recovery in good condition. Again, the prep was noted to be fair to poor.
== END 2020-05-04 09:26 | disposition home or self-care (01) ==
LOC: SDC 06:12
PROVIDERS: ATTEND Family Medicine
DX: K31.9 Disease of stomach and duodenum, unspecified (principal); K57.30 Diverticulosis of large intestine without perforation or abscess without bleeding; R10.13 Epigastric pain; Z86.010 Personal history of colon polyps; Z79.1 Long term (current) use of non-steroidal anti-inflammatories (NSAID)
CPT/HCPCS: J2704

== ENCOUNTER 2020-12-23 12:48 | Observation (INO) | payer MEDICARE, SELFPAY ==
[2020-12-23 13:43] LABS: Absolute Neutrophil Ct (ANC) 5.48 (1.4-6.9); BASOPHIL % 0.2 % (0.0-0.4); Basophil (Absolute #) 0.02 (0-0.4); Eosinophil % 13.6 % (0.00-5.0); Eosinophil (Absolute #) 1.29 (0-0.5); Hematocrit 45.1 % (35-47); Hemoglobin 14.1 gm/dl (12.0-16.0); Lymphocyte (Absolute #) 2.12 (1.0-4.6); Lymphocytes % 22.4 % (24.0-44.0); Mean Cell Volume 94.4 fl (78-100); Mean Corpuscular Hemoglobin 29.5 pg (26-32); Mean Corpuscular Hgb Concent. 31.3 g/dl (32-36); Monocyte (Absolute #) 0.57 (0.0-1.3); Neutrophil % 57.8 % (36.0-66.0); Platelet Count 242 K/mm3 (150-450); Red Blood Count 4.78 M/mm3 (4.1-5.4); Red Cell Distribution Width 14.9 % (11.5-14.0); White Blood Count 9.5 K/mm3 (4.0-10.5)
[2020-12-23 13:53] LABS: ALBUMIN 4.7 g/dL (3.5-5.0); ALKALINE PHOSPHATASE 111 U/L (38-126); BLOOD UREA NITROGEN 13 mg/dL (7-17); CHLORIDE 105 mmol/L (98-107); Calcium 9.4 mg/dL (8.4-10.2); Carbon Dioxide 21 mmol/L (22-30); EST GLOMERULAR FILTRATION RATE > 60.0 ML/MIN; Glucose 113 mg/dL (74-106); Potassium 4.2 mmol/L (3.5-5.1); SGOT/AST 39 U/L (14-36); SGPT/ALT 31 U/L (0-35); SODIUM 140 mmol/L (137-145); Total Protein 8.2 g/dL (6.3-8.2)
--- NOTE | 2020-12-23 14:31 | ERPHSYRPT ---
- History of Present Illness Time Seen by Provider: 12/23/20 12:50 Historian: patient Exam Limitations: no limitations Patient Subjective Stated Complaint: pt here for cough , congestion, chest pressure for 2 weeks now Triage Nursing Assessment: pt alert, resp easy, nasal congestion, skin w/d/p Physician History: Patient is a 60-year-old female presents to our ED as a referral from her primary care doctor for evaluation of chest pain. Patient also has a cough and congestion. Symptoms have been ongoing for approximately 2 weeks. No associated nausea vomiting or diaphoresis. No trauma. No fever. Symptoms are mild to moderate in intensity. No specific worsening improving factors. Patient voices no other complaints concerns at this time. Timing/Duration: week(s) (2 weeks) Activities at Onset: none Quality: aching Location: other (Patient is left chest.) Chest Pain Radiation: no radiation Severity of Pain-Max: moderate Severity of Pain-Current: mild Modifying Factors: Improves With: nothing Associated Symptoms: cough, No nausea, No vomiting, No abdominal pain Prior Chest Pain/Cardiac Workup: no prior chest pain Nitro Today/Relief: no nitro taken today Aspirin Treatment Today: no aspirin today Allergies/Adverse Reactions: Penicillins Allergy (Unknown, Verified 12/23/20 20:51) not taken as a child, does not remember Home Medications: Gabapentin 300 mg [Neurontin 300 mg] 300 mg PO QIDPRN PRN 11/09/11 [History] Sacubitril/Valsartan [Entresto 24 mg-26 mg Tablet] 1 tab PO BID 02/09/17 [History] Carvedilol 3.125 mg [Coreg 3.125 MG] 3.125 mg PO BID 12/23/20 [History] Topiramate [Topamax] 100 mg PO HS 12/23/20 [History] Venlafaxine HCl [Venlafaxine HCl ER] 225 mg PO HS 12/23/20 [History] Hx Tetanus, Diphtheria Vaccination/Date Given: Yes Hx Influenza Vaccination/Date Given: No Hx Pneumococcal Vaccination/Date Given: No Immunizations Up to Date: Yes Travel Risk - International Travel Have you traveled outside of the country in past 3 weeks: No - Coronavirus Screening Are you exhibiting any of the following symptoms?: Yes Symptoms: Cough: New Onset Close contact with a COVID-19 positive Pt in past 14-21 Days: No - Vaccine Status Have you recieved a Covid-19 vaccination: No - Review of Systems Constitutional: No Symptoms, No Fever, No Chills Eyes: No Symptoms Ears, Nose, & Throat: No Symptoms Respiratory: No Symptoms, No Cough, No Dyspnea Cardiac: No Symptoms, No Chest Pain, No Edema, No Syncope Abdominal/Gastrointestinal: No Symptoms, No Abdominal Pain, No Nausea, No Vomiting, No Diarrhea Genitourinary Symptoms: No Symptoms, No Dysuria Musculoskeletal: No Symptoms, No Back Pain, No Neck Pain Skin: No Symptoms, No Rash Neurological: No Symptoms, No Dizziness, No Focal Weakness, No Sensory Changes Psychological: No Symptoms Endocrine: No Symptoms Hematologic/Lymphatic: No Symptoms Immunological/Allergic: No Symptoms All Other Systems: Reviewed and Negative - Past Medical History Pertinent Past Medical History: Yes Neurological History: Migraines ENT History: No Pertinent History Cardiac History: Arrhythmia, Other Respiratory History: No Pertinent History Endocrine Medical History: No Pertinent History Musculoskeletal History: No Pertinent History, Other GI Medical History: GERD, Gallbladder Disease, Polyps History: No Pertinent History Psycho-Social History: Depression Female Reproductive Disorders: Endometriosis Other Medical History: h1n1 with pneumonia and infection injured her heart. Last ECHO shows reduced heart function 50% Multiple Sclerosis - Past Surgical History Past Surgical History: Yes Neuro Surgical History: No Pertinent History Cardiac: Cardiac Catheterization, Other Respiratory: No Pertinent History Gastrointestinal: Appendectomy, Cholecystectomy, Other Genitourinary: No Pertinent History Musculoskeletal: No Pertinent History Female Surgical History: Hysterectomy Other Surgical History: "vericose veins burned out" both legs, exploratory abdominal surgery,colonoscopy polyps removed - Social History Smoking Status: Never smoker Exposure to second hand smoke: No Drug Use: none Patient Lives Alone: No - Female History Hx Last Menstrual Period: post - Nursing Vital Signs Nursing Vital Signs: Initial Vital Signs Pulse Rate 103 H 12/23/20 12:49 Respiratory Rate 18 12/23/20 12:49 Blood Pressure 110/84 12/23/20 12:49 O2 Sat by Pulse Oximetry 98 12/23/20 12:49 Pain Scale Pain Intensity 2 - Physical Exam General Appearance: no apparent distress, alert Eye Exam: PERRL/EOMI, eyes nml inspection Ears, Nose, Throat Exam: normal ENT inspection, moist mucous membranes Neck Exam: normal inspection, non-tender, supple, full range of motion Respiratory Exam: normal breath sounds, lungs clear, No respiratory distress Cardiovascular Exam: regular rate/rhythm, normal heart sounds Gastrointestinal/Abdomen Exam: soft, No tenderness, No mass Back Exam: normal inspection, No CVA tenderness, No vertebral tenderness Extremity Exam: normal inspection, normal range of motion Neurologic Exam: alert, oriented x 3, cooperative, normal mood/affect, sensation nml, No motor deficits Skin Exam: normal color, warm, dry Lymphatic Exam: No adenopathy SpO2 Interpretation: normal SpO2: 97 O2 Delivery: Room Air - Course Nursing assessment & vital signs reviewed: Yes EKG Interpreted by Me: RATE ([id number]), Sinus Tach, NORMAL AXIS, NORMAL INTERVALS - Radiology Exams Chest X-ray Interpretation: Teleradiologist Report (Chest again demonstrates normal heart and lungs. Bony thorax intact. No new acute findings.) Ordered Tests: Active Orders 24 hr Category Date Time Status Bedrest with BRP/BSC ROUTINE Activity 12/23/20 20:32 Active Ton Container Shipper STAT Care 12/23/20 12:55 Completed Code Status Order ROUTINE Care 12/23/20 20:32 Active EKG-ER Only STAT Care 12/23/20 12:55 Completed IV Care Q6H Care 12/23/20 20:32 Active IV Insertion STAT Care 12/23/20 12:55 Completed Implement Chest Pain Pathway ROUTINE Care 12/23/20 20:[address] in Observation ROUTINE Care 12/23/20 20:32 Active Pulse Oximetry (ED) STAT Care 12/23/20 12:55 Completed Rajan Dubon ROUTINE Care 12/23/20 20:32 Active Telemetry q6h Care 12/23/20 20:32 Active Weight,Daily 0600 Care 12/23/20 20:32 Active Consistent Carbohydrate Diet 1800 Calorie Diet 12/23/20 Breakfast Active CHEST 1 VIEW (PORTABLE) Stat Exams 12/23/20 12:55 Completed CBC W DIFF Stat Lab 12/23/20 13:37 Completed CMP Stat Lab 12/23/20 13:37 Completed LIPID PROFILE AM.LAB Lab 12/24/20 01:10 Completed TROPONIN Q3H Lab 12/23/20 13:37 Completed TROPONIN Q3H Lab 12/23/20 15:45 Completed TROPONIN Q3H Lab 12/23/20 19:00 Completed TROPONIN Q3H Lab 12/23/20 22:37 Completed TROPONIN Q3H Lab 12/24/20 01:10 Completed EKG Q8HX2,QAMX3,PRN RT 12/23/20 20:32 Active Medication Summary Generic Name Dose Route Start Last Admin Trade Name Zaira PRN Reason Stop Dose Admin Acetaminophen 650 mg 12/23/20 20:32 Tylenol 325 Mg PO 01/22/21 20:31 Q4H PRN PRN PAIN AND/OR FEVER Al Hydrox/Mg Hydrox/Simethicone 30 ml 12/23/20 20:32 Maalox Es 30 Ml Unit Dose PO 01/22/21 20:31 Q4H PRN PRN INDIGESTION Carvedilol 3.125 mg 12/23/20 22:11 12/23/20 22:48 Coreg 3.125 Mg PO 01/22/21 22:10 3.125 mg BID SANGITA Administration Gabapentin 300 mg 12/23/20 22:11 12/23/20 22:48 Neurontin 300 Mg PO 01/22/21 22:14 300 mg QID PRN PRN Administration neuropathy Magnesium Hydroxide 30 - 60 ml 12/23/20 20:32 Milk Of Magnesia 30 Ml PO 01/22/21 20:31 QDP PRN CONSTIPATION Ondansetron HCl 4 mg 12/23/20 20:32 Zofran 4 Mg/2 Ml Vial IV 01/22/21 20:31 Q4H PRN PRN NAUSEA/VOMITING Sacubitril/Valsartan 0.5 tablet 12/23/20 22:13 12/23/20 22:48 Entresto 49 Mg-51 Mg Tablet PO 01/22/21 22:12 0.5 tablet BID SANGITA Administration Senna/Docusate Sodium 2 udtab 12/23/20 20:32 Senokot-S Tablet PO 01/22/21 20:31 BID PRN PRN CONSTIPATION Topiramate 100 mg 12/23/20 22:14 12/23/20 22:48 Topiramate PO 01/22/21 22:13 100 mg HS SANGITA Administration Venlafaxine HCl 225 mg 12/23/20 22:15 12/23/20 22:47 Effexor Xr 75 Mg PO 01/22/21 22:14 225 mg HS SANGITA Administration Discontinued Medications Generic Name Dose Route Start Last Admin Trade Name Zaira PRN Reason Stop Dose Admin Aspirin 324 mg 12/23/20 20:10 12/23/20 20:15 Baby Aspirin 81 Mg Chew PO 12/23/20 20:11 324 mg STAT ONE Administration Aspirin Confirm 12/23/20 20:13 Baby Aspirin 81 Mg Chew Administered 12/23/20 20:14 Dose 324 mg .ROUTE .STK-MED ONE Nitroglycerin 1 gm 12/23/20 20:10 12/23/20 20:18 Nitro-Bid 2% Ud Packets TOP 12/23/20 20:11 Not Given STAT ONE Nitroglycerin Confirm 12/23/20 20:13 Nitro-Bid 2% Ud Packets Administered 12/23/20 20:14 Dose 1 gm .ROUTE .STK-MED ONE Lab/Rad Data: Laboratory Result Diagrams 12/23/20 13:37 12/23/20 13:37 Laboratory Results 12/23/20 12/23/20 12/23/20 Range/Units 19:03 19:00 15:45 WBC (4.0-10.5) K/mm3 RBC (4.1-5.4) M/mm3 Hgb (12.0-16.0) gm/dl Hct (35-47) % MCV (78-100) fl MCH (26-32) pg MCHC (32-36) g/dl RDW (11.5-14.0) % Plt Count (150-450) K/mm3 MPV (7.5-11.0) fl Gran % (36.0-66.0) % Eos # (Auto) (0-0.5) Absolute Lymphs (auto) (1.0-4.6) Absolute Monos (auto) (0.0-1.3) Lymphocytes % (24.0-44.0) % Monocytes % (0.0-12.0) % Eosinophils % (0.00-5.0) % Basophils % (0.0-0.4) % Absolute Granulocytes (1.4-6.9) Basophils # (0-0.4) Sodium (137-145) mmol/L Potassium (3.5-5.1) mmol/L Chloride (98-107) mmol/L Carbon Dioxide (22-30) mmol/L Anion Gap (5-15) MEQ/L BUN (7-17) mg/dL Creatinine (0.52-1.04) mg/dL Estimated GFR ML/MIN Glucose (74-106) mg/dL Calcium (8.4-10.2) mg/dL Total Bilirubin (0.2-1.3) mg/dL AST (14-36) U/L ALT (0-35) U/L Alkaline Phosphatase (38-126) U/L Troponin I < 0.012 < 0.012 (0.000-0.034) ng/mL Serum Total Protein (6.3-8.2) g/dL Albumin (3.5-5.0) g/dL SARS-CoV-2 (PCR) NEGATIVE (NEGATIVE) 12/23/20 12/23/20 12/23/20 Range/Units 13:37 13:37 13:37 WBC 9.5 (4.0-10.5) K/mm3 RBC 4.78 (4.1-5.4) M/mm3 Hgb 14.1 (12.0-16.0) gm/dl Hct 45.1 (35-47) % MCV 94.4 (78-100) fl MCH 29.5 (26-32) pg MCHC 31.3 L (32-36) g/dl RDW 14.9 H (11.5-14.0) % Plt Count 242 (150-450) K/mm3 MPV 11.0 (7.5-11.0) fl Gran % 57.8 (36.0-66.0) % Eos # (Auto) 1.29 H (0-0.5) Absolute Lymphs (auto) 2.12 (1.0-4.6) Absolute Monos (auto) 0.57 (0.0-1.3) Lymphocytes % 22.4 L (24.0-44.0) % Monocytes % 6.0 (0.0-12.0) % Eosinophils % 13.6 H (0.00-5.0) % Basophils % 0.2 (0.0-0.4) % Absolute Granulocytes 5.48 (1.4-6.9) Basophils # 0.02 (0-0.4) Sodium 140 (137-145) mmol/L Potassium 4.2 (3.5-5.1) mmol/L Chloride 105 (98-107) mmol/L Carbon Dioxide 21 L (22-30) mmol/L Anion Gap 18.0 H (5-15) MEQ/L BUN 13 (7-17) mg/dL Creatinine 0.90 (0.52-1.04) mg/dL Estimated GFR > 60.0 ML/MIN Glucose 113 H (74-106) mg/dL Calcium 9.4 (8.4-10.2) mg/dL Total Bilirubin 0.90 (0.2-1.3) mg/dL AST 39 H (14-36) U/L ALT 31 (0-35) U/L Alkaline Phosphatase 111 (38-126) U/L Troponin I < 0.012 (0.000-0.034) ng/mL Serum Total Protein 8.2 (6.3-8.2) g/dL Albumin 4.7 (3.5-5.0) g/dL SARS-CoV-2 (PCR) (NEGATIVE) - Progress Progress: improved Air Movement: fair Progress Note: Patient reassessed. She continues to experience left-sided chest pain. Aspirin administered. Patient declined Nitropaste. Case discussed with Dr. Correa. We will admit patient for cardiac rule out. Plan of care discussed with patient. She agrees admission [facility] for further evaluation and treatment. 12/24/20 04:06 Blood Culture(s) Obtained: No Antibiotics given: No Discussed with : Joshua Will see patient in: hospital (observation) Counseled pt/family regarding: lab results, diagnosis, rad results - Departure Departure Disposition: Observation Clinical Impression: ACS (acute coronary syndrome), Chest pain Condition: Stable Critical Care Time: No
--- NOTE | 2020-12-23 15:15 | XRAY ---
Indication: Left chest pain. Comparison: April 14, 2020. Portable chest again demonstrates normal heart and lungs. Bony thorax intact. No new/acute findings.
[2020-12-23] MEDS ORDERED: BABY ASPIRIN 81 MG CHEW PO ONE (20:10)
[2020-12-23] MEDS ORDERED: BABY ASPIRIN 81 MG CHEW ONE (20:13)
[2020-12-23] MEDS ORDERED: NITRO-BID 2% UD PACKETS ONE (20:13)
[2020-12-23] MEDS: NITRO-BID 2% UD PACKETS TOP ONE ×2 (20:15→20:18)
[2020-12-23] MEDS ORDERED: MILK OF MAGNESIA 30 ML PO PRN (20:32)
[2020-12-23] MEDS ORDERED: Senokot-S Tablet PO PRN (20:32)
[2020-12-23] MEDS ORDERED: MAALOX ES 30 ML UNIT DOSE PO PRN (20:32)
[2020-12-23] MEDS ORDERED: Zofran 4 MG/2 ML VIAL IV PRN (20:32)
[2020-12-23] MEDS ORDERED: TYLENOL 325 MG PO PRN (20:32)
--- NOTE | 2020-12-23 21:27 | PCM.HP.ADD ---
Addendum to History & Physical - History & Physical Addendum Addendum to History & Physical: This certifies that the History & Physical in the electronic chart reflects the current health status of the patient. If there are changes in the H&P these changes/exceptions are listed as follows. I saw the pt in the ER as well, this evening. C/o 3/10 chest pain. She was admitted for CP r/o [place]. Will order echocardiogram for in the morning (last done approx 1 yr ago, per pt).
[2020-12-23] MEDS ORDERED: NEURONTIN 300 MG PO PRN (22:11)
[2020-12-23] MEDS ORDERED: TOPIRAMATE PO SCH (22:14)
[2020-12-23] MEDS ORDERED: Effexor XR 75 MG PO SCH (22:15)
[2020-12-23] MEDS: Coreg 3.125 MG PO SCH (22:48)
[2020-12-23] MEDS: ENTRESTO 49 MG-51 MG TABLET PO SCH (22:48)
[2020-12-24 01:54] LABS: NT PRO BNP 40.1 pg/mL (0-900); Risk Ratio 6.2
--- NOTE | 2020-12-24 08:33 | PCM.NOTE ---
Date and Time: 12/24/20829 Subjective Assessment: patient seen and examined, has been having productive cough with sputum and sharp chest pain intermittently for the last 2-3 weeks. her chest pain is fleeting and sharp with associated nausea and shortness of breath. interestingly she previously suffered a severe cardiomyopathy following H1N1 and for around 2 years her EF was in the 20's, she last had an echo around 18 months ago with EF 44% with Dr Smith Objective Exam General Appearance: no apparent distress, alert Respiratory Exam: rhonchi, No respiratory distress, No accessory muscle use Cardiovascular Exam: regular rate/rhythm, normal heart sounds Gastrointestinal/Abdomen Exam: soft, No tenderness, No mass Extremity Exam: normal inspection, normal range of motion OBJECTIVE DATA Vital Signs: Vital Signs - 24 hr Temp Pulse Pulse Resp BP Pulse Ox 12/24/20 07:37 98.1 F 86 16 121/74 96 12/24/20 04:08 97 12/24/20 04:05 99.0 F 86 18 118/71 95 12/23/20 23:47 98.0 F 97 H 18 128/87 95 12/23/20 22:15 98.7 F 86 20 134/95 97 12/23/20 20:08 95 H 13 131/93 95 12/23/20 19:00 92 H 18 118/72 95 12/23/20 18:04 98 H 18 129/84 96 12/23/20 17:32 97 H 20 109/88 98 12/23/20 16:27 78 18 138/93 97 12/23/20 16:00 74 12/23/20 14:42 98 H 14 107/74 96 12/23/20 12:58 97 12/23/20 12:49 103 H 18 110/84 98 Pain Assessment - Last Documented Pain Intensity 4 Intake and Output: Intake & Output 12/21/20 12/22/20 12/23/20 12/24/20 11:59 11:59 11:59 11:59 Intake Total 300 Balance 300 Weight 87.1 kg Lab Results: Lab Results-Last 24 Hours 12/23/20 12/23/20 12/23/20 Range/Units 13:37 13:37 13:37 WBC 9.5 (4.0-10.5) K/mm3 RBC 4.78 (4.1-5.4) M/mm3 Hgb 14.1 (12.0-16.0) gm/dl Hct 45.1 (35-47) % MCV 94.4 (78-100) fl MCH 29.5 (26-32) pg MCHC 31.3 L (32-36) g/dl RDW 14.9 H (11.5-14.0) % Plt Count 242 (150-450) K/mm3 MPV 11.0 (7.5-11.0) fl Gran % 57.8 (36.0-66.0) % Eos # (Auto) 1.29 H (0-0.5) Absolute Lymphs (auto) 2.12 (1.0-4.6) Absolute Monos (auto) 0.57 (0.0-1.3) Lymphocytes % 22.4 L (24.0-44.0) % Monocytes % 6.0 (0.0-12.0) % Eosinophils % 13.6 H (0.00-5.0) % Basophils % 0.2 (0.0-0.4) % Absolute Granulocytes 5.48 (1.4-6.9) Basophils # 0.02 (0-0.4) Sodium 140 (137-145) mmol/L Potassium 4.2 (3.5-5.1) mmol/L Chloride 105 (98-107) mmol/L Carbon Dioxide 21 L (22-30) mmol/L Anion Gap 18.0 H (5-15) MEQ/L BUN 13 (7-17) mg/dL Creatinine 0.90 (0.52-1.04) mg/dL Estimated GFR > 60.0 ML/MIN Glucose 113 H (74-106) mg/dL Calcium 9.4 (8.4-10.2) mg/dL Total Bilirubin 0.90 (0.2-1.3) mg/dL AST 39 H (14-36) U/L ALT 31 (0-35) U/L Alkaline Phosphatase 111 (38-126) U/L Troponin I < 0.012 (0.000-0.034) ng/mL NT-Pro-B Natriuret Pep (0-900) pg/mL Serum Total Protein 8.2 (6.3-8.2) g/dL Albumin 4.7 (3.5-5.0) g/dL Triglycerides (30-150) mg/dL Cholesterol (50-200) mg/dL LDL Cholesterol (30-100) mg/dL HDL Cholesterol (40-60) mg/dL Heart Disease Risk Ratio SARS-CoV-2 (PCR) (NEGATIVE) 12/23/20 12/23/20 12/23/20 Range/Units 15:45 19:00 19:03 WBC (4.0-10.5) K/mm3 RBC (4.1-5.4) M/mm3 Hgb (12.0-16.0) gm/dl Hct (35-47) % MCV (78-100) fl MCH (26-32) pg MCHC (32-36) g/dl RDW (11.5-14.0) % Plt Count (150-450) K/mm3 MPV (7.5-11.0) fl Gran % (36.0-66.0) % Eos # (Auto) (0-0.5) Absolute Lymphs (auto) (1.0-4.6) Absolute Monos (auto) (0.0-1.3) Lymphocytes % (24.0-44.0) % Monocytes % (0.0-12.0) % Eosinophils % (0.00-5.0) % Basophils % (0.0-0.4) % Absolute Granulocytes (1.4-6.9) Basophils # (0-0.4) Sodium (137-145) mmol/L Potassium (3.5-5.1) mmol/L Chloride (98-107) mmol/L Carbon Dioxide (22-30) mmol/L Anion Gap (5-15) MEQ/L BUN (7-17) mg/dL Creatinine (0.52-1.04) mg/dL Estimated GFR ML/MIN Glucose (74-106) mg/dL Calcium (8.4-10.2) mg/dL Total Bilirubin (0.2-1.3) mg/dL AST (14-36) U/L ALT (0-35) U/L Alkaline Phosphatase (38-126) U/L Troponin I < 0.012 < 0.012 (0.000-0.034) ng/mL NT-Pro-B Natriuret Pep (0-900) pg/mL Serum Total Protein (6.3-8.2) g/dL Albumin (3.5-5.0) g/dL Triglycerides (30-150) mg/dL Cholesterol (50-200) mg/dL LDL Cholesterol (30-100) mg/dL HDL Cholesterol (40-60) mg/dL Heart Disease Risk Ratio SARS-CoV-2 (PCR) NEGATIVE (NEGATIVE) 12/23/20 12/24/20 12/24/20 Range/Units 22:37 01:10 01:10 WBC (4.0-10.5) K/mm3 RBC (4.1-5.4) M/mm3 Hgb (12.0-16.0) gm/dl Hct (35-47) % MCV (78-100) fl MCH (26-32) pg MCHC (32-36) g/dl RDW (11.5-14.0) % Plt Count (150-450) K/mm3 MPV (7.5-11.0) fl Gran % (36.0-66.0) % Eos # (Auto) (0-0.5) Absolute Lymphs (auto) (1.0-4.6) Absolute Monos (auto) (0.0-1.3) Lymphocytes % (24.0-44.0) % Monocytes % (0.0-12.0) % Eosinophils % (0.00-5.0) % Basophils % (0.0-0.4) % Absolute Granulocytes (1.4-6.9) Basophils # (0-0.4) Sodium (137-145) mmol/L Potassium (3.5-5.1) mmol/L Chloride (98-107) mmol/L Carbon Dioxide (22-30) mmol/L Anion Gap (5-15) MEQ/L BUN (7-17) mg/dL Creatinine (0.52-1.04) mg/dL Estimated GFR ML/MIN Glucose (74-106) mg/dL Calcium (8.4-10.2) mg/dL Total Bilirubin (0.2-1.3) mg/dL AST (14-36) U/L ALT (0-35) U/L Alkaline Phosphatase (38-126) U/L Troponin I < 0.012 < 0.012 (0.000-0.034) ng/mL NT-Pro-B Natriuret Pep 40.1 (0-900) pg/mL Serum Total Protein (6.3-8.2) g/dL Albumin (3.5-5.0) g/dL Triglycerides 167 H (30-150) mg/dL Cholesterol 212 H (50-200) mg/dL LDL Cholesterol 129 H (30-100) mg/dL HDL Cholesterol 34 L (40-60) mg/dL Heart Disease Risk Ratio 6.2 SARS-CoV-2 (PCR) (NEGATIVE) Radiology Exams: Radiology Procedures Category Date Time Status CHEST 1 VIEW (PORTABLE) Stat Exams 12/23/20 12:55 Completed ECHO W/2D AND DOPPLER [US] Routine Exams 12/24/20 08:00 Ordered Assessment/Plan (1) Chest pain Current Visit: Yes Status: Acute Qualifiers: Assessment & Plan: NH ruled out but history is concerning with previous cardiomyopathy following viral illness, repeat echo today and will obtain cardiology consult but currently patient appears quite stable Code(s): R07.9 - CHEST PAIN, UNSPECIFIED (2) Acute bronchitis Current Visit: Yes Status: Acute Assessment & Plan: po prednisone and zithromax ordered, has coarse breath sounds that cleared with coughing, chest xray negative but clinically has infection. Code(s): J20.9 - ACUTE BRONCHITIS, UNSPECIFIED
[2020-12-24] MEDS ORDERED: Zithromax 500 MG/ 250 ML NaCl Premix 500 MG/250 ML IVPB IV SCH (10:00)
[2020-12-24] MEDS ORDERED: DELTASONE 20 MG PO SCH (10:00)
[2020-12-24] MEDS: ENTRESTO 49 MG-51 MG TABLET PO SCH (10:22)
[2020-12-24] MEDS: Coreg 3.125 MG PO SCH (10:22)
[2020-12-24 11:51] VITALS: BP 110/84; PULSE 89; O2SAT 97
--- NOTE | 2020-12-24 14:59 | PCM.DS ---
Discharge Summary Date of Admission: 12/23/20 20:29 Admitting Physician: JAMES PRADO Consults: Consults on Case 12/24/20 08:28 Consult Cardiology ROUTINE Primary Care Provider: JAMES PRADO Allergies Allergies Penicillins Allergy (Unknown, Verified 12/23/20 20:51) not taken as a child, does not remember Hospital Summary - Hospital Course Hospital Course: patient admitted with chest pain, symptoms atypical with bronchitis. chest xray negative, no oxygen required. EF normal on echo and cardiology advised outpatien t followup, MT ruled out - Vitals & Intake/Output Vital Signs: Vital Signs Temperature 97.5 F 12/24/20 11:50 Pulse Rate 89 12/24/20 11:50 Respiratory Rate 21 12/24/20 11:50 Blood Pressure 110/84 12/24/20 11:50 O2 Sat by Pulse Oximetry 97 12/24/20 11:50 Intake & Output: Intake & Output 12/22/20 12/23/20 12/24/20 12/25/20 11:59 11:59 11:59 11:59 Intake Total 540 120 Balance 540 120 Weight 87.1 kg - Lab Result Diagrams: 12/23/20 13:37 12/23/20 13:37 Lab Results-Last 24 Hrs: Lab Results-Last 24 Hours 12/23/20 12/23/20 12/23/20 Range/Units 13:37 15:45 19:00 WBC 9.5 (4.0-10.5) K/mm3 RBC 4.78 (4.1-5.4) M/mm3 Hgb 14.1 (12.0-16.0) gm/dl Hct 45.1 (35-47) % MCV 94.4 (78-100) fl MCH 29.5 (26-32) pg MCHC 31.3 L (32-36) g/dl RDW 14.9 H (11.5-14.0) % Plt Count 242 (150-450) K/mm3 MPV 11.0 (7.5-11.0) fl Gran % 57.8 (36.0-66.0) % Eos # (Auto) 1.29 H (0-0.5) Absolute Lymphs (auto) 2.12 (1.0-4.6) Absolute Monos (auto) 0.57 (0.0-1.3) Lymphocytes % 22.4 L (24.0-44.0) % Monocytes % 6.0 (0.0-12.0) % Eosinophils % 13.6 H (0.00-5.0) % Basophils % 0.2 (0.0-0.4) % Absolute Granulocytes 5.48 (1.4-6.9) Basophils # 0.02 (0-0.4) Troponin I < 0.012 < 0.012 (0.000-0.034) ng/mL NT-Pro-B Natriuret Pep (0-900) pg/mL Triglycerides (30-150) mg/dL Cholesterol (50-200) mg/dL LDL Cholesterol (30-100) mg/dL HDL Cholesterol (40-60) mg/dL Heart Disease Risk Ratio SARS-CoV-2 (PCR) (NEGATIVE) 12/23/20 12/23/20 12/24/20 Range/Units 19:03 22:37 01:10 WBC (4.0-10.5) K/mm3 RBC (4.1-5.4) M/mm3 Hgb (12.0-16.0) gm/dl Hct (35-47) % MCV (78-100) fl MCH (26-32) pg MCHC (32-36) g/dl RDW (11.5-14.0) % Plt Count (150-450) K/mm3 MPV (7.5-11.0) fl Gran % (36.0-66.0) % Eos # (Auto) (0-0.5) Absolute Lymphs (auto) (1.0-4.6) Absolute Monos (auto) (0.0-1.3) Lymphocytes % (24.0-44.0) % Monocytes % (0.0-12.0) % Eosinophils % (0.00-5.0) % Basophils % (0.0-0.4) % Absolute Granulocytes (1.4-6.9) Basophils # (0-0.4) Troponin I < 0.012 < 0.012 (0.000-0.034) ng/mL NT-Pro-B Natriuret Pep (0-900) pg/mL Triglycerides (30-150) mg/dL Cholesterol (50-200) mg/dL LDL Cholesterol (30-100) mg/dL HDL Cholesterol (40-60) mg/dL Heart Disease Risk Ratio SARS-CoV-2 (PCR) NEGATIVE (NEGATIVE) 12/24/20 Range/Units 01:10 WBC (4.0-10.5) K/mm3 RBC (4.1-5.4) M/mm3 Hgb (12.0-16.0) gm/dl Hct (35-47) % MCV (78-100) fl MCH (26-32) pg MCHC (32-36) g/dl RDW (11.5-14.0) % Plt Count (150-450) K/mm3 MPV (7.5-11.0) fl Gran % (36.0-66.0) % Eos # (Auto) (0-0.5) Absolute Lymphs (auto) (1.0-4.6) Absolute Monos (auto) (0.0-1.3) Lymphocytes % (24.0-44.0) % Monocytes % (0.0-12.0) % Eosinophils % (0.00-5.0) % Basophils % (0.0-0.4) % Absolute Granulocytes (1.4-6.9) Basophils # (0-0.4) Troponin I (0.000-0.034) ng/mL NT-Pro-B Natriuret Pep 40.1 (0-900) pg/mL Triglycerides 167 H (30-150) mg/dL Cholesterol 212 H (50-200) mg/dL LDL Cholesterol 129 H (30-100) mg/dL HDL Cholesterol 34 L (40-60) mg/dL Heart Disease Risk Ratio 6.2 SARS-CoV-2 (PCR) (NEGATIVE) - Radiology Exams Ordered Rad Exams-Entire Visit: Radiology Procedures Category Date Time Status CHEST 1 VIEW (PORTABLE) Stat Exams 12/23/20 12:55 Completed ECHO W/2D AND DOPPLER [US] Routine Exams 12/24/20 08:00 Taken - Procedures and Test Procedures and Tests throughout Hospitalization: Therapy Orders & Screens 12/23/20 20:32 EKG Q8HX2,QAMX3,PRN Comment: 12/23/20 23:30 EKG ROUTINE Comment: Diagnosis: chest pain 12/24/20 05:00 EKG DAILY Comment: Diagnosis: chest pain 12/25/20 05:00 EKG DAILY Comment: Diagnosis: chest pain 12/26/20 05:00 EKG DAILY Comment: Diagnosis: chest pain Discharge Exam General Appearance: no apparent distress Neurologic Exam: alert, oriented x 3, cooperative, normal mood/affect, nml cereb ellar function, sensation nml, No motor deficits Respiratory Exam: normal breath sounds, lungs clear, No respiratory distress Cardiovascular Exam: regular rate/rhythm, normal heart sounds Gastrointestinal/Abdomen Exam: soft, No tenderness, No mass Extremity Exam: normal inspection, normal range of motion Skin Exam: normal color, warm, dry Final Diagnosis/Problem List - Final Discharge Diagnosis/Problem (1) Chest pain Current Visit: Yes Status: Acute Assessment & Plan: pain seems atypical/pleuritic. MT ruled out Code(s): R07.9 - CHEST PAIN, UNSPECIFIED (2) Acute bronchitis Current Visit: Yes Status: Acute Assessment & Plan: zpak and prednisone rx Code(s): J20.9 - ACUTE BRONCHITIS, UNSPECIFIED - Discharge Disposition: Home, Self-Care Condition: Stable Prescriptions: New Prednisone 20 mg [Deltasone 20 mg] 20 mg PO UD #9 tablet Azithromycin 250 mg [Zithromax 250 MG TABLET] 250 mg PO ZPACK #6 tablet Continue Gabapentin 300 mg [Neurontin 300 mg] 300 mg PO QIDPRN PRN PRN Reason: Pain Sacubitril/Valsartan [Entresto 24 mg-26 mg Tablet] 1 tab PO BID Venlafaxine HCl [Venlafaxine HCl ER] 225 mg PO HS Carvedilol 3.125 mg [Coreg 3.125 MG] 3.125 mg PO BID Topiramate [Topamax] 100 mg PO HS Follow up with: JAMES PRADO [Primary Care Provider] - 1 Week
== END 2020-12-24 15:45 | disposition home or self-care (01) ==
LOC: ED 12:48 → MED SURG 20:29
PROVIDERS: ADMIT Family Medicine; ATTEND Family Medicine
DX: R07.9 Chest pain, unspecified (principal); J20.9 Acute bronchitis, unspecified; I25.10 Atherosclerotic heart disease of native coronary artery without angina pectoris; E78.5 Hyperlipidemia, unspecified; Z79.899 Other long term (current) drug therapy; Z20.828 Contact with and (suspected) exposure to other viral communicable diseases
CPT/HCPCS: 36000; 36415; 71045; 80053; 80061; 83721; 83880; 84484; 85025; 93005; 93041; 93306; 94760; 99285; G0378; Q3014; U0003; J0456; A9270-GY